=== PATIENT | female | born 1990 | race Asian ===

== ENCOUNTER 2023-11-09 10:25 | Emergency (ER) | payer BC, SELFPAY ==
[2023-11-09 10:28] VITALS: BP 102/69
--- NOTE | 2023-11-09 10:52 | ED.GENMED ---
History of Present Illness
General
Chief Complaint: Abdominal Pain
Source: patient
Time Seen by Provider: 11/09/23 10:38
History of Present Illness
History of Present Illness:
33-year-old female with past medical history of painful menstrual disease presenting to the emergency department for evaluation after she awoke this morning with severe lower abdominal cramping similar to her previous menstrual's although noting
today seem to be a little bit more severe accompanied with carpopedal spasm, spasm to her jaw, and upper legs which seem to subside a little bit following taking some Advil around 9:15 AM but also accompanied with nausea and vomiting which she
states she normally does not get. Patient states while her pain is improved she still has nausea. She also notes the carpopedal spasm, jaw spasm and upper leg spasm has since improved. Patient notes that her menstrual's are fairly irregular. She
has brought up that she does get painful menstrual's to her [employer] however this has never really been worked up further as an outpatient.
Past History
Past History
ED Past Medical History: Other (Frequent UTIs)
ED Past Surgical History: None
Social History
Tobacco: Non-smoker
Alcohol: None
Drug: None
Personal: Single
Living: alone
Employment: Student
Review of Systems
Review of Systems
All Other Systems: ROS reviewed and negative except as documented in HPI and ROS
Phy Exam
Physical Exam
Physical Exam:
GENERAL: Alert , in no apparent distress
EYE: clear conjunctiva b/l
HEAD: NCAT
ENT: mmm.
CARDIAC: Regular rate and rhythm .
LUNGS: Clear breath sounds bilaterally, no acute respiratory distress, no wheezes/rales/rhonchi
ABDOMEN: Soft, without focal tenderness, no r/g, no cvat
NEUROLOGICAL: Alert and oriented
SKIN: Warm and dry, skin intact.
MUSCULOSKELETAL: well perfused.
PSYCH: Normal and appropriate interaction.
Scores
Heart Failure Risk
Heart Failure Risk Score: Not Applicable
Heart Score for Chest Pain Patients
STEMI patient?: Not applicable
Withdrawal Assessment of Alcohol
Withdrawal Assessment Completed?: Not applicable
Course
Orders/Labs/Results
Orders:
Orders
11/09/23 10:52
0.9% Sodium Chloride 1000 ml [Nss] 1,000 ml IV BOLUS
Ondansetron Injectable [Zofran] 4 mg IV NOW STA
Test Result ONCE
US Pelvis W Transvag Combined Urgent
Reason For Exam: lower abd pain, painful menstrual
11/09/23 11:06
Complete Blood Count/With Diff Urgent
Comprehensive Metabolic Panel Urgent
HCG, Serum Qualitative Screen Urgent
Lipase Urgent
Urinalysis Reflex To Culture Urgent
Date Specimen was Collected: 11/09/23
Time Specimen was Collected: 11:01
Urine Microscopic Reflex Cult Urgent
11/09/23 11:29
Ketorolac [Toradol] 15 mg IV NOW STA
Abnormal Lab Results
11/09/23
11:06
Hct 35.5 L %
(37.0-47.0)
RDW 11.4 L %
(11.5-14.5)
Absolute Neuts (auto) 7.2 H 10^3/uL
(1.4-6.5)
Neutrophils % 78.4 H %
(42.2-75.2)
Lymphocytes % 14.4 L %
(20.5-51.1)
Chloride 109 H mmol/L
(98-107)
Creatinine 0.5 L mg/dL
(0.6-1.0)
AST 46 H U/L
(14-36)
Total Protein 5.9 L g/dl
(6.3-8.2)
Ur Occult Blood Reflex 4+ A
(Negative)
Urine RBC 50-60 A /HPF
(0-2)
Urine Bacteria (Reflex) Few A
(Negative)
11/09/23 11:06
11/09/23 11:06
Vital Signs
Initial and Last Documented VS:
Initial Vital Signs
Temp Pulse Resp BP Pulse Ox
98 F 74 16 102/69 98
11/09/23 10:28 11/09/23 10:28 11/09/23 10:28 11/09/23 10:28 11/09/23 10:28
Last Documented Vital Signs
Temp Pulse Resp BP Pulse Ox
98 F 64 16 92/75 98
11/09/23 10:28 11/09/23 13:00 11/09/23 13:00 11/09/23 12:00 11/09/23 14:01
MDM/Problems Addressed
Differential Diagnosis Includes:
Ovarian cyst, ovarian torsion, endometriosis, PMDD
MDM/Problems Addressed:
33-year-old female presenting to the emergency department for evaluation of lower abdominal pain accompanied with carpopedal spasm and generalized pain/spasm throughout her body. Patient noting that symptoms seem to be related to her menstrual as
she started with her menstrual period today and notes that while the pain today is more severe is pretty typical for her usual menstrual pain. She has had 1 previous ER visit about 4 years ago for similar. Will check labs, urine and ultrasound.
Patient declining anything for pain but is amenable to nausea medicine and fluids.
*Radiology
Radiology exam reviewed: radiology read reviewed
*Pulse Oximetry
Patient hypoxic: no
*Critical Care Note
Total Time (30-74mins, 75-104mins- exclusive of procedures): Not Applicable
Data Reviewed
Review of Other/Old Records Reveals: Records and Radiology Studies
Source: patient
Comment
Comment:
On reevaluation patient did start to note a little bit more pain and is requesting something else. She had taken 400 mg of ibuprofen at home. I did order an additional 15 mg of Toradol IV. Will reassess following
Patient Management
Escalation/DeEscalation of care consider admission/obs:
Patient's ultrasound without any abnormal findings. Suspect this is all related to patient's menstrual given her chronic history of this. Advise continued NSAIDs/Tylenol, warm heating pad for further pain control. Encouraged close follow-up with
her [employer]. Aware of return precautions.
ED Attending Note
-
Portions of this chart may have been created with voice recognition software.� Occasional wrong word or��sound alike� substitutions may have occurred due to the inherent limitations of voice recognition software.
Discharge Plan
Departure
Patient Disposition: Home (Routine Discharge)
Date of Disposition: 11/09/23
Time of Disposition: 13:57
Patient with high blood pressure during this ER visit?: No
Discharge Problem:
Dysmenorrhea
Instructions: Menstrual Cramps (DC)
Prescriptions:
No Action
No Current Medications
0
Referrals:
Donna Mcdonald DO [Family Provider] -
Interventions
Interventions:
*Risk Screen - Suicide Last Done: 11/09/23 10:57
*General Assessment Last Done: 11/09/23 10:57
*Neglect/Abuse Screening Last Done: 11/09/23 10:57
ED- Fall Risk Assessment Last Done: 11/09/23 10:57
*ED COVID-19 Vaccine History Last Done: 11/09/23 10:57
*Nursing Disposition Last Done: 11/09/23 14:11
AM-Bqkemo-Nztnlzscre Assessment Last Done: 11/09/23 10:57
Discharge Date and Time
Discharge Date/Time: 11/09/23 14:11
Print Language: FIJIAN
[2023-11-09 10:55] VITALS: BMI 22.9
[2023-11-09 10:57] VITALS: BP 92/69
[2023-11-09 11:00] VITALS: BP 92/69
[2023-11-09] MEDS: NSS 1000 IV (11:05)
[2023-11-09] MEDS: ZOFRAN 4 MG IV (11:06)
[2023-11-09 11:21] LABS: % Basophils 0.4 % (0-2); % Eosinophils 1.9 % (0-6); % Immature Granulocytes 0.2 % (0-0.5); % Lymphocytes 14.4 % (20.5-51.1); % Monocytes 4.7 % (1.7-9.3); % Neutrophils 78.4 % (42.2-75.2); Absolute Eosinophils 0.2 10^3/uL (0-0.7); Absolute Lymphocytes 1.3 10^3/uL (1.2-3.4); Absolute Monocytes 0.4 10^3/uL (0.1-0.6); Absolute Neutrophils 7.2 10^3/uL (1.4-6.5); Hematocrit 35.5 % (37.0-47.0); Hemoglobin 12.5 g/dL (12.0-16.0); Mean Corp Hgb Conc. 35.2 g/dL (33.0-37.0); Mean Corpuscular Hgb 29.1 pg (27.0-31.0); Mean Corpuscular Volume 82.8 fL (81.0-99.0); Mean Platelet Volume 9.5 fL (7.4-10.4); Nucleated Red Blood Cells % 0 %; Platelet Count 216 10^3/uL (130-400); Red Blood Cell Count 4.29 10^6/uL (4.20-5.40); Red Cell Dist. Width 11.4 % (11.5-14.5); Urine Albumin Negative (Neg - Trace); Urine Bilirubin Negative (Negative); Urine Character Clear (Clear); Urine Color Yellow; Urine Glucose Negative (Negative); Urine Ketone Negative (Negative); Urine Leukocyte Negative (Negative); Urine Nitrite Negative (Negative); Urine Occult Blood 4+ (Negative); Urine Specific Gravity 1.015 (<1.030); Urine Urobilinogen Negative (Neg - 1+); White Blood Cell Count 9.2 10^3/uL (4.8-10.8)
[2023-11-09 11:30] LABS: HCG, Serum Qualitative Screen Negative
[2023-11-09] MEDS: TORADOL 15 MG IV (11:32)
[2023-11-09 11:33] LABS: ALT (SGPT) 17 U/L (0-35); AST (SGOT) 46 U/L (14-36); Albumin 3.7 g/dl (3.5-5.0); Alkaline Phosphatase 60 U/L (38-126); Blood Urea Nitrogen 13 mg/dl (7-17); Calcium 8.6 mg/dl (8.4-10.2); Carbon Dioxide 25 mmol/L (22-30); Chloride 109 mmol/L (98-107); Estimated Creatinine Clearance 111 ml/min; Glucose 89 mg/dl (70-99); Lipase 67 U/L (23-300); Potassium 3.7 mmol/L (3.5-5.1); Sodium 137 mmol/L (135-145); Total Bilirubin 0.7 mg/dl (0.2-1.3); Total Protein 5.9 g/dl (6.3-8.2); eGFR > 60.00
[2023-11-09 11:42] LABS: Urine Bacteria Few (Negative); Urine Red Blood Cell 50-60 /HPF (0-2); Urine White Cell 0-2 /HPF (0-5)
[2023-11-09 12:00] VITALS: BP 92/75
== END 2023-11-09 14:11 | disposition home or self-care (01) ==
LOC: EMR 10:25
PROVIDERS: Physician Assistant Medical; EMERGENCY PHYSICIAN Emergency Medicine; FAMILY PHYSICIAN Family Medicine Sports Medicine
DX: N94.6 Dysmenorrhea, unspecified (principal)
CPT/HCPCS: 99284; 96374; 96375; 96361; 76830; 76856; 80053; 81003; 81015; 83690; 84703; 85025